=== PATIENT | male | born 1990 | race Caucasian/White ===

== ENCOUNTER → 2017-08-09 | Outpatient (CLI) | payer OTHER ==
--- NOTE | 2017-08-09 11:23 | XR ---
EXAMINATION TYPE: XR orbit detect foreign body DATE OF EXAM: 08/09/2017 COMPARISON: NONE HISTORY: History of metal working. Pre-MRI clearance. TECHNIQUE: 3 views of the orbits were obtained FINDINGS: The orbits appear intact. No radiopaque metallic foreign body is seen. Paranasal sinuses de monstrate very mild maxillary mucosal thickening but are otherwise well aerated. Nasal septum is midl ine. Visualized portions of the mastoid air cells are also well aerated. Nasal bone appears intact. IMPRESSION: No metallic radiopaque orbital foreign body present.
--- NOTE | 2017-08-09 18:01 | MR ---
EXAMINATION TYPE: MR brain wo con DATE OF EXAM: 08/09/2017 COMPARISON: NONE HISTORY: Memory loss. Personal history of trauma. TECHNIQUE: Multiplanar, multisequence images of the brain and brainstem is performed without intravenous contras t. FINDINGS: Diffusion weighted images demonstrate no evidence of a recent infarct or other diffusion ab normality. There is no extra-axial fluid collection. Scattered foci of white matter change are seen within the periventricular and subcortical white matter. Others are felt to be artifactual as motion artifact is seen on the coronal sagittal nonfat sat images 16 through 18 corresponding to FLAIR foci others are thought to be real such as on FLAIR and axial nonfat sat axial images 20 through 22. The l argest is in the right frontal periventricular white matter on image 21 measuring 4 mm. The ventricul ar system and cisternal spaces are normal in size and appearance. The brain volume is age appropriat e. Midline structures demonstrate normal morphology. The craniocervical junction appears within normal limits. The dural venous sinuses appear patent. The visualized sinuses are clear other than minimal m ucosal thickening within the ethmoid sinuses. The globes are intact. IMPRESSION: 1. No evidence of intracranial mass effect, midline shift, extra-axial fluid collection, or intracran ial edema. No recent infarct. 2. Few scattered foci of white matter change the largest measuring 4 mm. Given this patient's age the se could be related to gliosis from prior injury, vasculitis or less likely demyelinating disease giv en their distribution.
== END | disposition home or self-care (01) ==
LOC: RADMRIMAIN 10:57
PROVIDERS: ATTEND Psychiatry & Neurology Neurology
DX: R90.82 White matter disease, unspecified (principal); Z87.820 Personal history of traumatic brain injury
CPT/HCPCS: 70030; 70551